=== PATIENT | male | born 1960 | race Two or more races ===

== ENCOUNTER → 2017-02-12 | Outpatient (CLI) | payer OTHER ==
[2017-02-12 14:27] LABS: HEMOGLOBIN 15.7 g/dL (14.1-18.0); LYMPH # 1.8 K/mm3 (0.7-4.5); LYMPH % 31.6 % (10-50)
[2017-02-12 15:33] LABS: BUN 12 mg/dL (7-18)
[2017-02-12 15:38] LABS: GFR (ESTIMATED) 70 ML/MIN (>60)
[2017-02-13 08:48] LABS: RA Latex Turbid. <10.0 IU/mL (0.0-13.9); Vitamin D, 25-Hydroxy 24.5 ng/mL (30.0-100.0)
== END ==
LOC: LAB 13:28
PROVIDERS: Nurse Practitioner Family
DX: R53.83 Other fatigue (principal); E55.9 Vitamin D deficiency, unspecified